=== PATIENT | male | born 1970 | race Caucasian/White ===

== ENCOUNTER 2018-01-31 14:59 | Emergency (ER) | payer SELFPAY ==
[~2018-01-31] VITALS: Ht 167.6 cm; Wt 56.7 kg
[~2018-01-31 14:59] MED LIST: ACETAMINOPHEN-1 EAC1 ORAL; NEXIUM40 MG ORAL; NKM; RANITIDINE HCL150 MG ORAL; ZANTAC150 MG ORAL
[2018-01-31 15:30] VITALS: BP 109/63
[2018-01-31 16:18] VITALS: BP 109/63
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
--- NOTE | 2018-02-01 08:36 | Diagnostic Imaging Report ---
Indications: Trauma, pain Technique: 3 views of the left foot Comparison: None Findings: No acute fractures. No dislocations. Joint spaces are preserved. No radiopaque foreign body. Normal mineralization. Impression: No acute process
--- NOTE | 2018-02-01 08:54 | Diagnostic Imaging Report ---
Indication: Trauma, pain left first digit Technique: 3 views of the left great toe Comparison: none Findings: There is a corner fracture of the anteromedial base of the distal phalanx. This is nondisplaced. No other acute fractures. No dislocations. Impression: Positive for corner fracture of the anteromedial base of the first distal phalanx Findings discussed by phone with Dr. Diaz in the emergency room at the time of interpretation
== END 2018-01-31 17:20 | disposition home or self-care (01) ==
LOC: EMR 15:30
DX: S90.111A Contusion of right great toe without damage to nail, initial encounter (principal); V28.0XXA Motorcycle driver injured in noncollision transport accident in nontraffic accident, initial encounter; Y92.9 Unspecified place or not applicable
CPT/HCPCS: 99283

== ENCOUNTER 2018-02-02 01:12 | Emergency (ER) | payer SELFPAY ==
[~2018-02-02] VITALS: Ht 167.6 cm; Wt 61.2 kg
[2018-02-02 02:10] VITALS: BP 133/74
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
[2018-02-02] MEDS ORDERED: CYCLOBENZAPRINE10 MG ORAL (02:44)
[2018-02-02 02:52] VITALS: BP 133/74
== END 2018-02-02 02:52 | disposition home or self-care (01) ==
LOC: EMR 02:13
DX: M54.9 Dorsalgia, unspecified (principal); M79.602 Pain in left arm; M79.601 Pain in right arm; R07.89 Other chest pain; V49.9XXD Car occupant (driver) (passenger) injured in unspecified traffic accident, subsequent encounter; Z91.040 Latex allergy status
CPT/HCPCS: 99282

== ENCOUNTER 2019-01-24 08:40 | Emergency (ER) | payer SELFPAY ==
[~2019-01-24] VITALS: Ht 167.6 cm; Wt 63.0 kg
[~2019-01-24 08:40] MED LIST changes: +CYCLOBENZAPRINE10 MG ORAL
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
--- NOTE | 2019-01-24 09:08 | NUR ---
ED Nurse Note: Notified radiology of xray order.
--- NOTE | 2019-01-24 09:38 | NUR ---
ED Nurse Note: Xray at the bedside.
[2019-01-24] MEDS ORDERED: IBUPROFEN600 MG ORAL (10:20)
[2019-01-24] MEDS ORDERED: NORCO 5-325 TA1 EACH ORAL (10:20)
--- NOTE | 2019-01-24 10:35 | NUR ---
ED Nurse Note: Posterior short splint, crutches and cane provided for the pt.
[2019-01-24 10:42] VITALS: BP 132/75
--- NOTE | 2019-01-24 10:43 | NUR ---
ER DISCHARGE NOTE: Patient is cleared to be discharged per ERMD, pt is aox4, on room air, with stable vital signs. pt was given dc and prescription instructions, pt was able to verbalize understanding, pt id band removed without complications. pt is able to ambulate with steady gait. pt took all belongings.
--- NOTE | 2019-01-24 11:20 | Diagnostic Imaging Report ---
Indication: Pain status post injury Technique: 3 views of the right foot Comparison: Right toe radiographs 01/31/2018 Findings: Bone mineralization within normal limits. There is an acute displaced transverse fracture through the proximal shaft of the fourth proximal phalanx. Associated soft tissue swelling. Dislocation. There is mild hallux valgus. A bipartite medial hallux sesamoid is noted. No radiopaque foreign body. Impression: Acute fracture of the proximal shaft of the fourth proximal phalanx.
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
== END 2019-01-24 10:44 | disposition home or self-care (01) ==
LOC: EMR 09:36
DX: S92.511A Displaced fracture of proximal phalanx of right lesser toe(s), initial encounter for closed fracture (principal); S90.31XA Contusion of right foot, initial encounter; W20.8XXA Other cause of strike by thrown, projected or falling object, initial encounter; Y92.9 Unspecified place or not applicable
CPT/HCPCS: 29515; 99283

== ENCOUNTER 2019-02-23 11:53 | Emergency (ER) | payer SELFPAY ==
[~2019-02-23] VITALS: Ht 170.2 cm; Wt 61.2 kg
[~2019-02-23 11:53] MED LIST changes: +IBUPROFEN600 MG ORAL; +NORCO 5-325 TA1 EACH ORAL
--- NOTE | 2019-02-23 11:55 | NUR ---
ED Nurse Note: not found in waiting area.
[2019-02-23 11:58] VITALS: BP 109/73
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
[2019-02-23] MEDS ORDERED: NORCO 5-325 TA1 EACH ORAL (13:13)
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
[2019-02-23 13:26] VITALS: BP 116/63
--- NOTE | 2019-02-23 13:27 | NUR ---
ER DISCHARGE NOTE: Patient is cleared to be discharged per ERMD, pt is aox4. pt was given dc and prescription instructions, pt was able to verbalize understanding, pt id band and iv site removed without complications. pt is able to ambulate with steady gait. pt took all belongings. Addendum: 02/23/19 at 1332 by WADE Provided community resources.
--- NOTE | 2019-02-23 17:49 | Diagnostic Imaging Report ---
Indication: Pain, trauma Technique: 3 views right foot Comparison: none Findings: There is an oblique fracture of the midshaft of the fourth proximal phalanx. This is displaced dorsally by over one bone width. No other acute fractures. No dislocations. There is hallux valgus with bunion formation. The joint spaces are preserved. Impression: Positive for fourth proximal phalangeal fracture This agrees with the preliminary interpretation provided by the emergency room physician
== END 2019-02-23 13:30 | disposition home or self-care (01) ==
LOC: EMR 12:35
DX: S92.511A Displaced fracture of proximal phalanx of right lesser toe(s), initial encounter for closed fracture (principal); X58.XXXA Exposure to other specified factors, initial encounter; Y92.9 Unspecified place or not applicable
CPT/HCPCS: 99283

== ENCOUNTER 2019-11-20 13:09 | Emergency (ER) | payer SELFPAY ==
[~2019-11-20] VITALS: Ht 167.6 cm; Wt 63.5 kg
[2019-11-20 14:31] VITALS: BP 113/63
--- NOTE | 2019-11-20 15:12 | Emergency Room Report ---
History of Present Illness General Chief Complaint: Edema Source: Patient Present Illness HPI 48-year-old male presents to the emergency department complaining of bilateral feet swelling since this AM. Patient reports he started a new job and is doing about 10 hours of standing/walking which is unusual for him. Patient denies pain he denies calf pain or swelling. Patient denies tenderness. Patient reports he has been walking somewhat she has a blister on the bottom of the right foot. He denies erythema. He denies increase in salt intake or history of high blood pressure. He denies significant past medical history. Denies trauma or fall. No other aggravating or relieving factors at this time. Denies recent travel or immobilization. Allergies: Coded Allergies: No Known Allergies (Unverified , 01/24/19) Patient History Past Medical History: see triage record Past Surgical History: none Pertinent Family History: none Reviewed Nursing Documentation: PMH: Agreed; PSxH: Agreed Nursing Documentation-PMH Past Medical History: No Stated History Hx Gastrointestinal Problems: Yes - Gastritis Review of Systems All Other Systems: negative except mentioned in HPI Physical Exam Vital Signs Date Time Temp Pulse Resp B/P (MAP) Pulse Ox O2 Delivery O2 Flow Rate FiO2 11/20/19 13:26 98.2 61 18 113/63 (80) 96 Room Air Sp02 EP Interpretation: reviewed, normal General Appearance: no apparent distress, alert, GCS 15, non-toxic Head: normocephalic, atraumatic Eyes: bilateral eye normal inspection, bilateral eye PERRL ENT: hearing grossly normal, normal voice Neck: full range of motion Respiratory: chest non-tender, lungs clear, normal breath sounds, speaking full sentences Cardiovascular #1: regular rate, rhythm, normal capillary refill, edema - 1+ non pitting edema of feet bilaterally no ankle or calf involvement. non-pitting Cardiovascular #2: 2+ dorsalis pedis (R), 2+ dorsalis pedis (L) Musculoskeletal: normal range of motion, gait/station normal, non-tender Neurologic: alert, motor strength/tone normal, oriented x3, sensory intact, responsive, speech normal Psychiatric: judgement/insight normal Skin: no rash, normal color Lymphatic: no adenopathy Medical Decision Making PA Attestation Dr. Hernández is my supervising Physician whom patient management has been discussed with. Diagnostic Impression: Primary Impression: Pedal edema ER Course 48-year-old male presents to the emergency department complaining of bilateral feet swelling since this AM. Patient reports he started a new job and is doing about 10 hours of standing/walking which is unusual for him. Patient denies pain he denies calf pain or swelling. Patient denies tenderness. Patient reports he has been walking somewhat she has a blister on the bottom of the right foot. He denies erythema. He denies increase in salt intake or history of high blood pressure. He denies significant past medical history. Denies trauma or fall. No other aggravating or relieving factors at this time. Denies recent travel or immobilization. Ddx considered but are not limited to DVT, Cellulitis, CHF, lymphedema, circulatory compromise, peripheral edema, musculo-skeletal injury Vital signs: Are WNL H&PE are most consistent with benign pedal edema ... - CHF of very very low suspicion - pt. does not have Cardic RF -Good circulation on PE. - Pt. has wells criteria of Zero. ORDERS: None required at this time. ED INTERVENTIONS: Hctz PO x 1 I do not suspect an emergent condition at this time. with current presentation pt. is stable for close outpatient follow up. D/w pt. that i will rx compression stockings, conservative treatment and to follow up with her PCP, and to return to ED with new or worsening of symptoms. DISCHARGE: At this time pt. is stable for d/c to home. Will provide printed patient care instructions, and any necessary prescriptions. Care plan and follow up instructions have been discussed with the patient prior to discharge. Last Vital Signs Date Time Temp Pulse Resp B/P (MAP) Pulse Ox O2 Delivery O2 Flow Rate FiO2 11/20/19 14:31 98.2 89 18 113/63 96 Room Air Disposition: HOME, SELF-CARE Condition: Stable Scripts Hydrochlorothiazide* (HYDROCHLOROTHIAZIDE*) 12.5 Mg Tablet 12.5 MG ORAL DAILY, #7 TAB Prov: Christie Lacy 11/20/19 Referrals: Tera Sherman Comp. [facility] Patient Instructions: Edema, Peripheral Edema Additional Instructions: ~~~ An emergent medical condition has not been identified based on this patients presentation, exam and any necessary testing/imaging. The patient is determined to be stable for outpatient follow-up and management of symptoms by a primary care provider.~~~ Take medications as directed. Follow up with a Primary Care Provider in 3-5 days, even if your symptoms have resolved. !*! Return sooner to ED if new symptoms occur, or current symptoms become worse. !*! - Please note that this Emergency Department Report was dictated using [employer] coiler hand technology software, occasionally this can lead to erroneous entry secondary to interpretation by the dictation equipment. Christie Lacy Nov 20, 2019 15:12
[2019-11-20] MEDS ORDERED: HYDROCHLOROTH12.5 MG ORAL (15:14)
[2019-11-20] MEDS ORDERED: hydroCHLOROthiazide 25mg cap ORAL ONE (15:15)
[2019-11-20 15:44] VITALS: BP 126/70
== END 2019-11-20 17:30 | disposition home or self-care (01) ==
LOC: EMR 17:10
DX: R60.0 Localized edema (principal); S90.821A Blister (nonthermal), right foot, initial encounter
CPT/HCPCS: 99281

== ENCOUNTER 2020-07-15 05:37 | Emergency (ER) | payer SELFPAY ==
[~2020-07-15] VITALS: Ht 167.6 cm; Wt 61.2 kg
[~2020-07-15 05:37] MED LIST changes: +HYDROCHLOROTH12.5 MG ORAL
--- NOTE | 2020-07-15 05:54 | Emergency Room Report ---
History of Present Illness General Chief Complaint: Abdominal Pain Source: Patient (Rakesh Calhoun MD) Present Illness HPI Is a 49-year-old male with a history of IV heroin use. He has been clean for 5 years. He is currently on Suboxone. He presents with chief plan abdominal pain with nausea and vomiting. Onset for last 20 hours. No fever or chills. Pain is sharp and crampy. Vomiting is nonbloody nonbilious. Now retching. No diarrhea. No fever. No trauma. No urinary complaint. 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: No (Rakesh Calhoun MD) Patient History Past Medical History: see triage record, old chart reviewed Past Surgical History: other Pertinent Family History: none Social History: Reports: drug use - History of IV drug use Immunizations: other Reviewed Nursing Documentation: PMH: Agreed; PSxH: Agreed (Rakesh Calhoun MD) Nursing Documentation-PMH Hx Gastrointestinal Problems: Yes - Gastritis (Rakesh Calhoun MD) Review of Systems Eye: Denies: eye pain, blurred vision ENT: Denies: ear pain, nose congestion, throat swelling Respiratory: Denies: cough, shortness of breath Cardiovascular: Denies: chest pain, palpitations Gastrointestinal: Reports: abdominal pain, nausea, vomiting; Denies: diarrhea Musculoskeletal: Denies: back pain, joint pain Skin: Denies: rash Neurological: Denies: headache, numbness Endocrine: Denies: increased thirst, increased urine Hematologic/Lymphatic: Denies: easy bruising All Other Systems: negative except mentioned in HPI (Rakesh Calhoun MD) Physical Exam Vital Signs Date Time Temp Pulse Resp B/P (MAP) Pulse Ox O2 Delivery O2 Flow Rate FiO2 07/15/20 05:39 98.4 55 18 148/86 (106) 99 Room Air Vitals unremarkable Sp02 EP Interpretation: reviewed, normal General Appearance: well appearing, no apparent distress, alert Head: normocephalic, atraumatic Eyes: bilateral eye PERRL, bilateral eye EOMI ENT: hearing grossly normal, normal pharynx Neck: full range of motion, supple, no meningismus Respiratory: chest non-tender, lungs clear, normal breath sounds Cardiovascular #1: regular rate, rhythm, no murmur Gastrointestinal: no mass, no organomegaly, no bruit, non-distended, abnormal bowel sounds - Hyperactive, tenderness - Diffuse Musculoskeletal: back normal, normal range of motion, gait/station normal Psychiatric: mood/affect normal (Rakesh Calhoun MD) Medical Decision Making Diagnostic Impression: Primary Impression: Abdominal pain Qualified Codes: R10.84 - Generalized abdominal pain Additional Impressions: Nausea & vomiting Qualified Codes: R11.2 - Nausea with vomiting, unspecified Proctocolitis ER Course Patient with abdominal pain with nausea and vomiting. Differential includes gastritis, cyclic vomiting syndrome, opioid withdrawal, appendicitis, obstruction to name a few. Labs and CT pending. I will sign this patient out to Dr. Moncada for final disposition. (Rakesh aClhoun MD) ER Course This patient was turned over to me from Dr. Calhoun. The patient presented with nausea, vomiting and epigastric pain. Patient has a history of gastritis. Also of note, the patient has a history of IV heroin addiction and abuse. Per report from Dr. Calhoun, the patient has been clean for the past 5 years. The patient was medicated prior to my arrival with IV fluids and IM Dilaudid. I also gave the patient IV morphine. The patient continued to complain of 10 out of 10 pain despite being given high doses of narcotics. Either this patient is drug- seeking or has a very high opioid tolerance secondary to his history of IV drug abuse. I felt that a different route of pain control rather than opioid narcotics would be more appropriate for this patient. I felt that the treatment should focus on treatment of the underlying condition that appeared to be consistent with gastritis and proctocolitis. Therefore, the patient was given Pepcid IV, Mylanta and viscous lidocaine orally. The patient also underwent CT of the abdomen pelvis given the severity of the pain. CT of the abdomen pelvis showed circumferential wall thickening of the sigmoid colon and rectum, consistent with mild proctocolitis. I decided that I would treat this patient's proctocolitis as a possible sexually transmitted infection. Patient was given Rocephin IM and 1 g of azithromycin orally to treat for both gonorrhea and chlamydia. After I had a discussion with the patient about high doses of narcotics in the emergency department and that I would not be using any further narcotics, the patient seemed to calm and then reported to me that his symptoms had resolved. I did offer the patient admission to the hospital for intractable pain, however, the patient declined stating that he would rather manage this in his home. The patient declined to give a urinalysis sample. Patient's laboratory work-up was benign. Specifically, a normal CBC without elevation in white blood cell count. Chemistry panel was benign and unremarkable. There is no evidence of pancreatitis. There is no evidence of hepatitis. The patient's AST was slightly elevated which could be secondary to a number of nonemergent etiologies. Overall, the patient's evaluation is benign. He was given close return precautions and follow-up instructions. Laboratory Tests Test 07/15/20 05:47 White Blood Count 7.3 K/UL (4.8-10.8) Red Blood Count 4.93 M/UL (4.70-6.10) Hemoglobin 15.1 G/DL (14.2-18.0) Hematocrit 43.9 % (42.0-52.0) Mean Corpuscular Volume 89 FL (80-99) Mean Corpuscular Hemoglobin 30.6 PG (27.0-31.0) Mean Corpuscular Hemoglobin Concent 34.3 G/DL (32.0-36.0) Red Cell Distribution Width 11.1 % (11.6-14.8) L Platelet Count 170 K/UL (150-450) Mean Platelet Volume 7.9 FL (6.5-10.1) Neutrophils (%) (Auto) 65.8 % (45.0-75.0) Lymphocytes (%) (Auto) 19.5 % (20.0-45.0) L Monocytes (%) (Auto) 8.3 % (1.0-10.0) Eosinophils (%) (Auto) 5.2 % (0.0-3.0) H Basophils (%) (Auto) 1.2 % (0.0-2.0) Sodium Level 138 MMOL/L (136-145) Potassium Level 3.8 MMOL/L (3.5-5.1) Chloride Level 105 MMOL/L (98-107) Carbon Dioxide Level 27 MMOL/L (21-32) Anion Gap 6 mmol/L (5-15) Blood Urea Nitrogen 16 mg/dL (7-18) Creatinine 0.9 MG/DL (0.55-1.30) Estimated Glomerular Filtration Rate > 60 mL/min (>60) Glucose Level 122 MG/DL (74-106) H Calcium Level 8.3 MG/DL (8.5-10.1) L Total Bilirubin 0.5 MG/DL (0.2-1.0) Aspartate Amino Transferase (AST) 38 U/L (15-37) H Alanine Aminotransferase (ALT) 37 U/L (12-78) Alkaline Phosphatase 53 U/L (46-116) Total Protein 6.0 G/DL (6.4-8.2) L Albumin 3.9 G/DL (3.4-5.0) Globulin 2.1 g/dL Albumin/Globulin Ratio 1.9 (1.0-2.7) Lipase 245 U/L (73-393) (Formerly [facility]) CT/MRI/US Diagnostic Results CT/MRI/US Diagnostic Results : Imaging Test Ordered: CT abd/pelvis Impression IMPRESSION: 1. Circumferential wall thickening of the sigmoid colon and rectum, correlate for mild proctocolitis. Associated, moderate free fluid in the pelvis. If there are no symptoms of proctocolitis, correlate with colonoscopy to evaluate the wall thickening of the distal sigmoid colon and rectum. Circumferential wall thickening of numerous small bowel loops, consistent with concomitant enteritis. Associated, fecalization of small bowel loops without definite evidence of obstruction. If symptoms persist, consider repeat CT scan. Mild-moderate fecal retention. 2. Small hiatal hernia. 3. Interspinous device at L4-5. (Formerly [facility]) Last Vital Signs Date Time Temp Pulse Resp B/P (MAP) Pulse Ox O2 Delivery O2 Flow Rate FiO2 07/15/20 05:39 98.4 55 18 148/86 (106) 99 Room Air Status: improved (Rakesh Calhoun MD) Status: improved ([facility]) Disposition: HOME, SELF-CARE Condition: Improved Scripts Polyethylene Glycol 3350* (MIRALAX*) 17 Gm Powd.pack 17 GM ORAL DAILY, #10 PACKET [facility] 07/[facility] Docusate Sodium* (COLACE*) 100 Mg Capsule 100 MG ORAL DAILY, #30 CAP Prov: Sada Moncada DO 07/15/20 Famotidine* (Pepcid 20mg tablet*) 20 Mg Tablet 20 MG ORAL TWICE A DAY for Gerd, #60 TAB 0 Refills Prov: Sada Moncada DO 07/15/20 Referrals: NOT CHOSEN IPA/,REFERRING (PCP) Rakesh Calhoun MD Jul 15, 2020 05:54 Sada Moncada DO Jul 15, 2020 06:43
[2020-07-15] MEDS ORDERED: Promethazine 50mg/ml Inj IM ONE (06:00)
--- NOTE | 2020-07-15 06:06 | NUR ---
ED Nurse Note: Patient walked in from home c/o midepigastric abdominal pain for the last 24 hours, patient reports sharp aching pain 10/10, guarding and grasping site noted. Patient aao x 4 and ambulatory with steady but weak gait d/t pain. Patient reports he has history of gastritis and his last meal was a burger. Patient denies n/v/d. Patient reports he has history of IV drug use and is currently on suboxone. No acute distress noted during assessment.
[2020-07-15 06:08] VITALS: BP 139/89
--- NOTE | 2020-07-15 06:08 | NUR ---
ED Nurse Note: Patient taken to CT in stable condition.
--- NOTE | 2020-07-15 06:18 | NUR ---
ED Nurse Note: Patient returned from CT in stable condition and placed back on monitor tech.
[2020-07-15 06:24] LABS: BASOPHILS % (AUTO) 1.2 % (0.0-2.0); EOSINOPHILS % (AUTO) 5.2 % (0.0-3.0); HEMATOCRIT 43.9 % (42.0-52.0); HEMOGLOBIN 15.1 G/DL (14.2-18.0); LYMPHOCYTES % (AUTO) 19.5 % (20.0-45.0); MEAN CORPUSCULAR VOLUME 89 FL (80-99); MONOCYTES % (AUTO) 8.3 % (1.0-10.0); NEUTROPHILS % (AUTO) 65.8 % (45.0-75.0); PLATELET COUNT 170 K/UL (150-450); RED BLOOD COUNT 4.93 M/UL (4.70-6.10); RED CELL DISTRIBUTION WIDTH 11.1 % (11.6-14.8); WHITE BLOOD COUNT 7.3 K/UL (4.8-10.8)
[2020-07-15 06:27] LABS: ANION GAP 6 mmol/L (5-15); BLOOD UREA NITROGEN 16 mg/dL (7-18); CALCIUM 8.3 MG/DL (8.5-10.1); CARBON DIOXIDE 27 MMOL/L (21-32); CHLORIDE 105 MMOL/L (98-107); CREATININE 0.9 MG/DL (0.55-1.30); POTASSIUM 3.8 MMOL/L (3.5-5.1); SODIUM 138 MMOL/L (136-145)
[2020-07-15] MEDS ORDERED: Capsaicin 0.075% Cream TOPIC ONE (06:30)
[2020-07-15] MEDS ORDERED: Lidocaine 2% Visc 15ml soln ORAL ONE (06:30)
[2020-07-15 06:31] LABS: ALANINE AMINOTRANSFERASE 37 U/L (12-78); ALBUMIN 3.9 G/DL (3.4-5.0); ALBUMIN/GLOBULIN RATIO 1.9 (1.0-2.7); ALKALINE PHOSPHATASE 53 U/L (46-116); ASPARTATE AMINO TRANSFERASE 38 U/L (15-37); BILIRUBIN,TOTAL 0.5 MG/DL (0.2-1.0)
[2020-07-15] MEDS ORDERED: Morphine Sulfate 4mg/ml Inj (IV USE ONLY) IVP ONE (06:45)
--- NOTE | 2020-07-15 07:00 | Diagnostic Imaging Report ---
EXAM: CT Abdomen and Pelvis Without Intravenous Contrast CLINICAL HISTORY: ABD PAIN TECHNIQUE: Axial computed tomography images of the abdomen and pelvis without intravenous contrast. CTDI is 3.60 mGy and DLP is 202.30 mGy-cm. One or more of the following dose reduction techniques were used: automated exposure control, adjustment of the mA and/or kV according to patient size, use of iterative reconstruction technique. COMPARISON: No relevant prior studies available. FINDINGS: Lung bases: Unremarkable. No mass. No consolidation. Mediastinum: Small hiatal hernia. ABDOMEN: Liver: Scattered low attenuation foci within the liver, measuring up to 1.3 cm which are too small to characterize and likely represent cysts. Gallbladder and bile ducts: Contracted gallbladder. No calcified stones. No ductal dilation. Pancreas: Unremarkable. No ductal dilation. Spleen: Unremarkable. No splenomegaly. Adrenals: Unremarkable. No mass. Kidneys and ureters: Unremarkable. No obstructing stones. No hydronephrosis. Stomach and bowel: Circumferential wall thickening of the sigmoid colon and rectum, correlate for mild proctocolitis. Associated, moderate free fluid in the pelvis. Circumferential wall thickening of numerous small bowel loops, consistent with concomitant enteritis. Associated, fecalization of small bowel loops without definite evidence of obstruction. If symptoms persist, consider repeat CT scan. Mild-moderate fecal retention. PELVIS: Appendix: No findings to suggest acute appendicitis. Bladder: Unremarkable. No stones. Reproductive: Penile ornamentation, incidentally noted. ABDOMEN and PELVIS: Intraperitoneal space: See above. Bones/joints: No acute fracture. No dislocation. Soft tissues: Unremarkable. Vasculature: Mild atherosclerotic changes of the aorta. No abdominal aortic aneurysm. Lymph nodes: Unremarkable. No enlarged lymph nodes. IMPRESSION: 1. Circumferential wall thickening of the sigmoid colon and rectum, correlate for mild proctocolitis. Associated, moderate free fluid in the pelvis. If there are no symptoms of proctocolitis, correlate with colonoscopy to evaluate the wall thickening of the distal sigmoid colon and rectum. Circumferential wall thickening of numerous small bowel loops, consistent with concomitant enteritis. Associated, fecalization of small bowel loops without definite evidence of obstruction. If symptoms persist, consider repeat CT scan. Mild-moderate fecal retention. 2. Small hiatal hernia. 3. Interspinous device at L4-5.
--- NOTE | 2020-07-15 07:20 | NUR ---
ED Nurse Note: ERMD aware that pt refusing to provide urine, and refuses striaght cath.
[2020-07-15] MEDS ORDERED: COLACE100 MG ORAL ×2 (07:58→09:18)
[2020-07-15] MEDS ORDERED: FAMOTIDINE20 MG ORAL ×2 (07:58→09:18)
[2020-07-15] MEDS ORDERED: MIRALAX17 G2 ORAL ×2 (07:58→09:18)
[2020-07-15] MEDS ORDERED: Lidocaine 1% MPF 10mg/ml 5ml INJ ONE (08:00)
[2020-07-15] MEDS ORDERED: Azithromycin 250mg tab ORAL ONE (08:00)
[2020-07-15 08:12] VITALS: BP 136/87
--- NOTE | 2020-07-15 08:14 | NUR ---
ER DISCHARGE NOTE: Patient is cleared to be discharged per ERMD, pt is aox4, on room air, with stable vital signs. pt was given dc and prescription instructions, pt was able to verbalize understanding, pt id band. Pt removed ID before receiving discharge, no removal complications. pt is able to ambulate with steady gait. pt took all belongings.
[2020-07-15 11:50] LABS: APPEARANCE,URINE CLEAR; BILIRUBIN, URINE NEGATIVE (NEGATIVE); COLOR,URINE PALE YELLOW; GLUCOSE, URINE (UA) NEGATIVE (NEGATIVE); KETONES,URINE 1+ (NEGATIVE); LEUKOCYTE ESTERASE ,URINE NEGATIVE (NEGATIVE); NITRITE,URINE NEGATIVE (NEGATIVE); PH,URINE 7 (4.5-8.0); PROTEIN,URINE NEGATIVE (NEGATIVE); UROBILINOGEN,URINE NORMAL MG/DL (0.0-1.0)
[2020-07-15] MEDS ORDERED: BUTRANS1 EAC3 TD (13:45)
== END 2020-07-15 08:15 | disposition home or self-care (01) ==
LOC: EMR 05:51
DX: K51.90 Ulcerative colitis, unspecified, without complications (principal); R11.2 Nausea with vomiting, unspecified; R10.84 Generalized abdominal pain; K44.9 Diaphragmatic hernia without obstruction or gangrene; K59.00 Constipation, unspecified
CPT/HCPCS: 36415; 74176; 80053; 80307; 81003; 83690; 85025; 96361; 96372; 96374; 96375; 99284; G0480; J0696; J1170; J2270; J2550; J7030; S0028

== ENCOUNTER 2020-07-15 11:06 | Inpatient (IN) | payer SELFPAY ==
[~2020-07-15] VITALS: Ht 167.6 cm; Wt 58.5 kg
[~2020-07-15 11:06] MED LIST changes: +COLACE100 MG ORAL; +FAMOTIDINE20 MG ORAL; +MIRALAX17 G2 ORAL
[2020-07-15 11:12] VITALS: BP 139/84
--- NOTE | 2020-07-15 11:12 | NUR ---
ED Nurse Note: PT walked in to ed for C/O ABD pain with n/v. pt was here abouot 2 houts ago for the same reasons. PT states the S/Sx have returned.
[2020-07-15] MEDS: Capsaicin 0.075% Cream TOPIC ONE ×2 (11:30→11:52)
--- NOTE | 2020-07-15 11:41 | NUR ---
ED Nurse Note: urine sample collected and sent to lab.
--- NOTE | 2020-07-15 11:50 | NUR ---
ED Nurse Note: pt offered zostric cream but refused. ERMD aware.
[2020-07-15] MEDS ORDERED: Morphine Sulfate 10mg/ml Inj IVP ONE (12:00)
[2020-07-15] MEDS ORDERED: Ketorolac 30mg Inj IV ONE (12:45)
--- NOTE | 2020-07-15 13:02 | Emergency Room Report ---
History of Present Illness General Chief Complaint: Abdominal Pain Source: Patient Present Illness HPI I discharged this patient 2 hours ago. The patient had presented early this morning with abdominal pain and vomiting and was initially seen by Dr. Calhoun. The patient had significantly improved and was pain-free at discharge. The patient states that after leaving the emergency department, while he was in line at the pharmacy to get the medications I have prescribed him, his symptoms returned and were unbearable. He continues to complain of pain in his mid abdomen and vomiting. The patient keeps refusing the topical capsaicin cream. I had suspected that this patient had cannabis hyperemesis syndrome when I saw him earlier. However, he kept declining the capsaicin cream. He clearly has knowledge of medications, especially opiate medications. He underwent a full laboratory work-up and a CT of the abdomen pelvis. He was found to have a proctocolitis. I treated this with Rocephin IM and azithromycin p.o. for presumptive sexually transmitted infection at the previous visit. There are no new symptoms or complaints. See my previous note and Dr. Calhoun's previous note. Allergies: Coded Allergies: No Known Allergies (Unverified , 01/24/19) COVID-19 Screening Contact w/high risk pt: No Experienced COVID-19 symptoms?: No COVID-19 Testing performed SOFT CRAB SHEDDER: No Patient History Past Medical History: see triage record, other - Gastritis Social History: Denies: smoking, alcohol use, drug use Reviewed Nursing Documentation: PMH: Agreed; PSxH: Agreed Nursing Documentation-PMH Hx Gastrointestinal Problems: Yes - Gastritis Review of Systems All Other Systems: negative except mentioned in HPI Physical Exam Vital Signs Date Time Temp Pulse Resp B/P (MAP) Pulse Ox O2 Delivery O2 Flow Rate FiO2 07/15/20 11:09 98.4 89 18 139/84 (102) 97 Room Air Sp02 EP Interpretation: reviewed, normal General Appearance: no apparent distress, alert, GCS 15, non-toxic Head: normocephalic, atraumatic Eyes: bilateral eye normal inspection, bilateral eye PERRL ENT: hearing grossly normal, normal pharynx, no angioedema, normal voice Neck: full range of motion, supple/symm/no masses Respiratory: chest non-tender, lungs clear, normal breath sounds, no respira tory distress, no retraction, no accessory muscle use, speaking full sentences Cardiovascular #1: regular rate, rhythm, no edema Gastrointestinal: soft, non-distended, no guarding, no rebound, tenderness - TTP in the mid abdomen Rectal: deferred Musculoskeletal: back normal, normal range of motion, gait/station normal, non- tender Neurologic: alert, motor strength/tone normal, oriented x3, sensory intact, responsive, speech normal Psychiatric: judgement/insight normal, memory normal, mood/affect normal, no suicidal/homicidal ideation Skin: no rash, normal color Medical Decision Making Diagnostic Impression: Primary Impression: Cyclic vomiting syndrome Additional Impressions: Marijuana abuse Intractable abdominal pain Proctocolitis ER Course This patient has intractable abdominal pain and cyclic vomiting syndrome. The patient has a history of heroin abuse and has a high opioid tolerance. However, unfortunately, the patient kept demanding opioids despite meeting educating him that likely opioids will not work for him. He was given IV morphine, Toradol and I was able to get this patient to allow capsaicin cream to be placed on the patient's abdomen. I also gave Haldol as this has been shown to treat cannabis hyperemesis syndrome and cyclic vomiting syndrome. I feel that opioid treatment for this condition is ineffective encounter productive. Especially, given this patient's history. The patient failed outpatient treatment and is admitted for intractable pain and intractable vomiting. See EMR. Urine drug screen positive for marijuana. All other labs unremarkable. Last Vital Signs Date Time Temp Pulse Resp B/P (MAP) Pulse Ox O2 Delivery O2 Flow Rate FiO2 07/15/20 11:12 89 18 Room Air 07/15/20 11:12 98.5 139/84 97 Disposition: ADMITTED INPATIENT Condition: Stable Referrals: NOT CHOSEN P[facility]SCHE/,REFERRING (PCP) Sada Moncada DO Jul 15, 2020 13:02
[2020-07-15] MEDS ORDERED: Haloperidol 5mg/ml Inj IM ONE (13:15)
--- NOTE | 2020-07-15 13:20 | NUR ---
ED Nurse Note: report given to donn Mendoza room would be available in 10 minutes
--- NOTE | 2020-07-15 13:41 | NUR ---
ED Nurse Note: pt taken to room 410 M/S via gurney accompanied by first officer in stable condition. IV site remain intact. Belonging list signed off.
[2020-07-15] MEDS ORDERED: BUTRANS1 EAC3 TD (13:45)
[2020-07-15] MEDS ORDERED: HYDROcodone/Acetamin 5/325 tab ORAL PRN (13:45)
[2020-07-15] MEDS ORDERED: D5NS 1,000 ML IV SCH (13:45)
[2020-07-15 13:50] VITALS: BP 121/79
--- NOTE | 2020-07-15 13:50 | NUR ---
NURSE NOTES: Received patient from ER.Patient is alert and oriented x4. Patient complains of abdominal pain but falls asleep. Patient took haldol in the ER. medical history obtained from the patient. Patient said he took flu shot for this season but forgot the date. Abdomen is soft to touch. No nausea or vomiting @ this time. during conversation patient dozed off and easily arousable to name. Skin assessment done, skin is intact, all belongings were check, patient has beck of $143.00 refused to keep it in the safe. Bed alarm is on for safety, urinal @ the bedside, Charge nurse received admission orders form Dr. Hanks. Will continue plan of care.
[2020-07-15 13:59] LABS: APPEARANCE,URINE CLEAR; BILIRUBIN, URINE NEGATIVE (NEGATIVE); COLOR,URINE PALE YELLOW; GLUCOSE, URINE (UA) NEGATIVE (NEGATIVE); KETONES,URINE 2+ (NEGATIVE); LEUKOCYTE ESTERASE ,URINE NEGATIVE (NEGATIVE); NITRITE,URINE NEGATIVE (NEGATIVE); PH,URINE 8 (4.5-8.0); PROTEIN,URINE NEGATIVE (NEGATIVE); UROBILINOGEN,URINE NORMAL MG/DL (0.0-1.0)
[2020-07-15 15:59] VITALS: BP 124/82
--- NOTE | 2020-07-15 16:02 | NUR ---
NURSE NOTES: Patient is still asleep, calm, no s/s of pain, easily arousable.V/s stable.
[2020-07-15] MEDS ORDERED: D5NS 1000ml IV ONE (17:35)
--- NOTE | 2020-07-15 18:24 | NUR ---
NURSE NOTES: Patient walked to the bathroom, stable.No s/s of pain.
--- NOTE | 2020-07-15 18:31 | NUR ---
NURSE HAND-OFF: Important Events on Shift:admission Patient Status: stable Diet: clear liquid Pending Orders: Pending Results/Labs: Pending MD notification: Latest Vital Signs: Temperature 97.2 , Pulse 68 , B/P 124 /82 , Respiratory Rate 20 , O2 SAT 99 , Room Air, O2 Flow Rate . Vital Sign Comment: Latest [place] Fall Score: 20 Fall Risk: Low Risk Safety Measures: Call light Within Reach, Bed Alarm Zone 2, Side Rails Side Rails x3, Bed position Low and Locked. Fall Precautions: Door Sign Patient Fall Education Report given to Jennifer and endorsed plan of care.
--- NOTE | 2020-07-15 19:16 | NUR ---
NURSE NOTES: Patient went on Discharged Against Medical Advice. Patient signed the AMA form and Edmund Flannery informed by phone and said OK.
--- NOTE | 2020-07-17 10:52 | Discharge Summary ---
Discharge Summary Discharge Summary _ DATE OF ADMISSION: 07/15/2020 DATE OF DISCHARGE: 07/15/2020 Patient left AGAINST MEDICAL ADVICE REASON FOR ADMISSION: 49 years old male initially presented to emergency department with abdominal pain and vomiting. Patient received analgesic , antiemetic ,significantly improved , was pain-free and subsequently discharged from emergency room. After leaving the emergency department patient was in line at the pharmacy to get medications that were prescribed to him, but he came back to emergency room because his symptoms returned and were unbearable. Patient continued to have a pain in mid abdomen and non bloody vomiting episodes . He refused there was a high suspicion for cannabis hyperemesis syndrome and patient was seen earlier however patient declined Capzasin cream. Patient on prior admission early in the morning underwent full laboratory work- up and imaging. CT of the abdomen pelvis and found to have proctocolitis. Patient received empiric antibiotic. Vital signs were stable. Urinalysis revealed no evidence of UTI. Urine toxicology screen was positive for marijuana and opiates. Laboratory work-up revealed no leukocytosis, stable hemoglobin, hematocrit and platelet count. Stable electrolytes and renal parameters. CT scan of the abdomen and pelvis revealed circumferential wall thickening of the sigmoid colon and rectum, possible mild proctocolitis. In ED patient received analgesic antiemetic , 3 L of fluids and admitted for further management. Patient admitted for cyclic vomiting syndrome, marijuana abuse, intractable abdominal pain, and proctocolitis. HOSPITAL COURSE: Patient admitted to medical surgical floor and started on IV fluids. Patient was kept n.p.o. Analgesics provided as needed , pain resolved . No further emesis . Patient started on clear liquid diet , and was able to tolerate it. Later in the day patient stated, that he felt better and decided to leave AGAINST MEDICAL ADVICE. The risks and consequences of signing AGAINST MEDICAL ADVICE were discussed with patient in detail. Patient verbalized understanding, nevertheless signed AMA form and left. FINAL DIAGNOSES: Cyclic vomiting syndrome Marijuana abuse Intractable abdominal pain Possible proctocolitis I have been assigned to dictate discharge summary for this account. I was not involved in the patient's management. Shruthi Gomez NP Jul 17, 2020 10:52
== END 2020-07-15 19:10 | disposition left against medical advice (07) | DRG 394 ==
LOC: EMR 11:40 → 4E 12:36 → EDBEDREQ 13:09 → EDBEDREQSVC 13:24
DX: R11.15 Cyclical vomiting syndrome unrelated to migraine (principal); K51.30 Ulcerative (chronic) rectosigmoiditis without complications; F12.10 Cannabis abuse, uncomplicated; K29.70 Gastritis, unspecified, without bleeding; R10.9 Unspecified abdominal pain; F11.11 Opioid abuse, in remission
CPT/HCPCS: 80307; 81003; 96361; 96372; 96374; 96375; 99285; J7030